=== PATIENT | female | born 1975 | race Caucasian/White ===

== ENCOUNTER 2017-02-04 17:20 | Emergency (ER) ==
[2017-02-04 17:24] VITALS: BP 128/83; TEMP 99; BMI 32.4
--- NOTE | 2017-02-04 17:29 | ED.PDOC ---
General ED Provider: Dr. NEELAM SCHULER Chief Complaint: Hand Pain/Injury Stated Complaint: hand wrist injury Time Seen by Physician: 17:20 Mode of Arrival: Walk-In Information Source: Patient Exam Limitations: No limitations Primary Care Provider: BHARGAV PHELPS Nursing and Triage Documentation Reviewed and Agree: Yes Musculoskeletal Complaint Exam - Hand/Wrist Complaint/Exam Location of Pain: Reports: Right, Hand, Wrist Mechanism of Injury: Reports: Trauma (blunt force) Onset/Duration: 2 hr ago Symptoms Are: Still present Onset of Pain: Reports: Hours Initial Severity: Moderate Current Severity: Moderate Location: Reports: Discrete Character: Reports: Aching Alleviating: Reports: Rest, Elevation Aggravating: Reports: Movement Associated Signs and Symptoms: Reports: Redness. Denies: Swelling, Bruising, Fever, Weakness, Numbness, Tingling Related History: Reports: Similar episode Dominant Hand: Right Related Surgical History: Reports: None Differential Diagnoses: Closed Fracture Review of Systems - Review Of Systems Constitutional: Reports: No symptoms Eyes: Reports: No symptoms Ears, Nose, Mouth, Throat: Reports: No symptoms Respiratory: Reports: No symptoms Cardiac: Reports: No symptoms GI: Reports: No symptoms : Reports: No symptoms Musculoskeletal: Reports: Joint pain Skin: Reports: No symptoms Neurological: Reports: No symptoms Endocrine: Reports: No symptoms Hematologic/Lymphatic: Reports: No symptoms All Other Systems: Reviewed and Negative Past Medical History - Past Medical History Endocrine: Reports: Hypothyroid Cardiovascular: Reports: Unknown Respiratory: Reports: Asthma Hematological: Reports: None Gastrointestinal: Reports: Unknown Genitourinary: Reports: Kidney stones Neuro/Psych: Reports: Depression, Bipolar Disorder Musculoskeletal: Reports: Arthritis Cancer: Reports: Other Last Menstrual Period: hysterectomy Other Pertinent Past Medical History: SEASONAL ASTHMA;THYROID KIDNEY STONES DEPR ARTH - Surgical History General Surgical History: Reports: Hysterectomy (PARTIAL HYSTERECTOMY 10 YEARS AGO), Orthopedic (LEFT ARM, RODS;PARTIAL HYSTERECTOMY 10 YEARS AGO RENU IN LEFT ARM) - Family History Family History: Reports: Unknown - Social History Smoking Status: Current every day smoker, Heavy tobacco smoker Hx Substance Use: No Alcohol Screening: None Physical Exam - Physical Exam Appearance: Well-appearing, No pain distress, Well-nourished Eyes: JESSICA, EOMI, Conjunctiva clear ENT: Ears normal, Nose normal, Oropharynx normal Respiratory: Airway patent, Breath sounds clear, Breath sounds equal, Respirations nonlabored Cardiovascular: RRR, Pulses normal, No rub, No murmur GI/: Soft, Nontender, No masses, Bowel sounds normal, No Organomegaly Musculoskeletal: Normal strength, ROM intact, No edema, No calf tenderness Skin: Warm, Dry, Normal color Neurological: Sensation intact, Motor intact, Reflexes intact, Cranial nerves intact, Alert, Oriented Psychiatric: Affect appropriate, Mood appropriate Critical Care Note - Critical Care Note Total Time (mins): 0 Course - Course Orders, Labs, Meds: Orders Category Date Time Status HAND, RIGHT 3 VIEWS Stat RADS 02/04/17 17:26 Completed WRIST, RIGHT 3 VIEWS Stat RADS 02/04/17 17:26 Taken Vital Signs: Temp Pulse Resp BP Pulse Ox 02/04/17 17:20 99.0 F 96 H 20 128/83 95 Departure - Departure Time of Disposition: 18:00 Disposition: HOME SELF-CARE Discharge Problem: Hand pain, Injury of head, Wrist sprain Instructions: Wrist Injury (ED), Arthralgia (ED) Condition: Good Pt referred to PMD for follow-up: Yes Additional Instructions: Please call your Family Physician as soon as possible to schedule a follow-up appointment. Prescriptions: Hydrocodone/Acetaminophen [[place] 10-325 Tablet] 1 each PO Q8HR #12 tablet Allergies/Adverse Reactions: Allergies No Known Drug Allergies Adverse Reaction (Verified 02/04/17 17:24) Home Medications: Ambulatory Orders Hydrocodone/Acetaminophen [[place] 10-325 Tablet] 1 each PO Q8HR #12 tablet Disposition Discussed With: Patient
--- NOTE | 2017-02-04 17:50 | DI ---
EXAM: Right wrist three views HISTORY: Injury and pain FINDINGS/IMPRESSION: No paras or articular abnormality. Negative exam.
--- NOTE | 2017-02-04 18:38 | DI ---
EXAM:Three-view right wrist COMPARISON: None HISTORY: Trauma and pain FINDINGS: There is no acute fracture or dislocation. Alignment is anatomic. Joint spaces are well preserved. There is no significant degenerative change. Soft tissues are unremarkable. No unexpecte d radio-opaque foreign bodies. IMPRESSION: No acute osseous abnormality.
== END 2017-02-04 18:05 | disposition home or self-care (01) ==
LOC: ED 17:20
DX: S63.501A Unspecified sprain of right wrist, initial encounter (principal); M79.641 Pain in right hand; W22.8XXA Striking against or struck by other objects, initial encounter
CPT/HCPCS: 99283